=== PATIENT | male | born 1965 | race Caucasian/White ===

== ENCOUNTER 2018-11-01 22:40 | Outpatient (REF) | payer BC, SELFPAY ==
[2018-11-01 23:19] LABS: Hemoglobin A1C 5.3 % (4.5-6.2)
== END 2018-11-01 23:00 ==
LOC: NCHCN 22:40
PROVIDERS: PCP Family Medicine; Visit Provider Family Medicine
DX: R73.9 Hyperglycemia, unspecified (principal)
CPT/HCPCS: 83036

== ENCOUNTER 2019-02-23 16:28 | Outpatient (REF) | payer BC, SELFPAY ==
[2019-02-23 18:51] LABS: Abs Immature Grans 0.01 k/cumm (0.0-0.09); Absolute Basophil Count 0.01 k/cumm (0.0-0.2); Absolute Eosinophil Count 0.14 k/cumm (0.0-0.7); Absolute Lymphocyte Count 1.13 k/cumm (1.2-3.4); Absolute Monocyte Count 0.37 k/cumm (0.11-0.7); Absolute Neutrophil Count 3.79 k/cumm (1.2-6.7); Basophils % 0.2; Eosinophils % 2.6; HGB 13.5 g/dL (13.5-17.5); Immature Grans % 0.2; Lymphocytes % 20.7; Mean Corp. HGB Concentration 32.9 g/dL (32.0-36.0); Mean Corpuscular Hemoglobin 31.5 pg (27.0-33.0); Mean Corpuscular Volume 95.8 fL (80-95); Mean Platelet Volume 8.5 fL (8.0-11.0); Monocytes % 6.8; Neutrophils % 69.5; Platelet Count 192 x1000/uL (130-400); RBC 4.28 m/cumm (4.50-6.00); RBC Distribution Width 16.1 % (11.8-14.1); White Blood Cell Count 5.45 k/cumm (4.4-10.8)
== END 2019-02-23 16:48 ==
LOC: NCHCN 16:28
PROVIDERS: PCP Family Medicine; Visit Provider Family Medicine
DX: C91.40 Hairy cell leukemia not having achieved remission (principal)
CPT/HCPCS: 85025

== ENCOUNTER 2019-06-28 15:22 | Outpatient (REF) | payer BC, SELFPAY ==
[2019-06-28 21:02] LABS: Abs Immature Grans 0.02 k/cumm (0.0-0.09); Absolute Basophil Count 0.02 k/cumm (0.0-0.2); Absolute Eosinophil Count 0.17 k/cumm (0.0-0.7); Absolute Lymphocyte Count 1.29 k/cumm (1.2-3.4); Absolute Monocyte Count 0.66 k/cumm (0.11-0.7); Absolute Neutrophil Count 5.11 k/cumm (1.2-6.7); Basophils % 0.3; Eosinophils % 2.3; HCT 41.7 % (40.0-50.0); Immature Grans % 0.3 %; Lymphocytes % 17.7; Mean Corp. HGB Concentration 33.6 g/dL (32.0-36.0); Mean Corpuscular Hemoglobin 32.2 pg (27.0-33.0); Mean Corpuscular Volume 95.9 fL (80-95); Mean Platelet Volume 8.6 fL (8.0-11.0); Monocytes % 9.1; Neutrophils % 70.3; Platelet Count 193 x1000/uL (130-400); RBC 4.35 m/cumm (4.50-6.00); RBC Distribution Width 15.6 % (11.8-14.1); White Blood Cell Count 7.27 k/cumm (4.4-10.8)
[2019-06-28 21:09] LABS: ALT 59 U/L (16-63); AST 22 U/L (15-37); Alkaline Phosphatase 101 U/L (46-116); Anion Gap 5.8 mmol/L (3-11); BUN 20 mg/dL (7-18); Bilirubin, Total 0.6 mg/dL (0.2-1.0); CO2 30.2 mmol/L (21.0-32.0); CREATININE 1.12 mg/dL (0.70-1.30); Calcium 8.8 mg/dL (8.5-10.1); Chloride 102 mmol/L (98-107); Glucose 104 mg/dL (74-106); Potassium 3.8 mmol/L (3.5-5.1); Sodium 138 mmol/L (136-145)
== END 2019-06-28 15:42 ==
LOC: NCHCN 15:22
PROVIDERS: PCP Family Medicine; Visit Provider Family Medicine
DX: C91.40 Hairy cell leukemia not having achieved remission (principal); I10 Essential (primary) hypertension
CPT/HCPCS: 80053; 85025

== ENCOUNTER → 2020-04-28 14:44 | Outpatient (CLI) | payer BC, SELFPAY ==
--- NOTE | 2020-04-28 14:30 | DI.RAD_ITS ---
EXAM: XR HIP LT COMPLETE AP PELVIS CLINICAL HISTORY: painful L hip, limited motion. TECHNIQUE: 2D digital imaging was performed. COMPARISON: No exams were available for comparison FINDINGS: There are marked degenerative changes seen in the left hip characterized by joint space narrowing, aparicio bchondral sclerosis and cysts, and periarticular spurring. Moderate degenerative changes are seen in the right hip. No acute fracture or dislocation. There is a mixed lytic and sclerotic lesion in th e left pubic bone. IMPRESSION: 1. Marked degenerative changes of the left hip. 2. Mixed lytic and sclerotic focus in the left pubic bone. Differential considerations include prior trauma, infection or neoplasm. A CT scan or MRI of the pelvis is recommended for further evaluation . DATA REPOSITORY: RADIATION DOSE DELIVERED:
== END ==
PROVIDERS: PCP Family Medicine; Referring Provider Family Medicine; Visit Provider Student in an Organized Health Care Education/Training Program
DX: M16.12 Unilateral primary osteoarthritis, left hip (principal)
CPT/HCPCS: 73502

== ENCOUNTER 2020-05-30 02:01 | Outpatient (CLI) | payer BC, SELFPAY ==
[2020-05-31 13:58] LABS: COVID-19 RT-PCR UVMMC Result Negative (Negative)
== END 2020-05-30 02:02 | disposition home or self-care (01) ==
LOC: LBO 02:01
PROVIDERS: PCP Family Medicine; Visit Provider Student in an Organized Health Care Education/Training Program
DX: Z20.822 Contact with and (suspected) exposure to COVID-19 (principal); Z01.818 Encounter for other preprocedural examination
CPT/HCPCS: U0003

== ENCOUNTER 2020-05-30 02:34 | Outpatient (CLI) | payer BC, SELFPAY ==
[2020-05-30 10:26] LABS: HCT 43.6 % (40.0-50.0); HGB 14.2 g/dL (13.5-17.5); MCH 31.2 pg (27.0-33.0); MCHC 32.6 % (32.0-36.0); MCV 95.8 fL (80-95); MPV 8.6 fL (8.0-11.0); Platelet Count 170 10^3/uL (130-400); RBC 4.55 10^6/uL (4.36-5.78); RDW-SD 53.9 fL; WBC 6.83 10^3/uL (4.4-10.8)
[2020-05-30 11:11] LABS: Anion Gap 10.8 mmol/L (3-11); BUN 20 mg/dL (7-18); CO2 24.2 mmol/L (21.0-32.0); CREATININE 1.2 mg/dL (0.70-1.30); Calcium 8.8 mg/dL (8.5-10.1); Chloride 104 mmol/L (98-107); Glucose 132 mg/dL (74-106); Potassium 4.4 mmol/L (3.5-5.1); Sodium 139 mmol/L (136-145)
== END 2020-05-30 02:35 | disposition home or self-care (01) ==
LOC: LBO 02:34
PROVIDERS: PCP Family Medicine; Visit Provider Student in an Organized Health Care Education/Training Program
DX: M25.552 Pain in left hip (principal); M16.12 Unilateral primary osteoarthritis, left hip; Z01.818 Encounter for other preprocedural examination; Z01.812 Encounter for preprocedural laboratory examination
CPT/HCPCS: 36415; 80048; 85027; 86850; 86900; 86901

== ENCOUNTER 2020-06-03 06:08 | Day surgery (SDC) | payer BC, SELFPAY ==
[2020-06-03] VITALS (10 sets, daily range): BP systolic 88–110; BP diastolic 50–77; PULSE 55–93; RESP 12–18; TEMP 36.1–36.5; O2SAT 97–100
[2020-06-03] MEDS: Celecoxib 200 MG CAP 400 MG PO (06:51)
[2020-06-03] MEDS: Acetaminophen 500 MG TAB 1000 MG PO ×2 (06:52→15:09)
[2020-06-03] MEDS: Lactated Ringers 1,000 ML 80 ML IV ×2 (07:00→10:22)
--- NOTE | 2020-06-03 07:29 | PDOC.DSDIS_ITS ---
Discharge Plan Disposition Patient Disposition: HOME Condition: Good Discharge Details Reason For Visit: Left HIp DJD Attending Provider: Moise Wagner Primary Care Provider: Sarah Dale Home Meds and New Rx's Prescriptions: New celecoxib 200 mg capsule 200 mg PO BID PRN (Reason: pain) Qty: 60 RF: 1 aspirin 81 mg tablet,delayed release (DR/EC) 81 mg PO BID Qty: 60 RF: 0 acetaminophen 500 mg tablet 1,000 mg PO Q8H PRN (Reason: pain) Qty: 90 RF: 3 pantoprazole 40 mg tablet,delayed release (DR/EC) 40 mg PO DAILY Qty: 30 RF: 0 docusate sodium [Colace] 100 mg capsule 100 mg PO BID PRNQty: 10 RF: 0 oxycodone 5 mg tablet 5 mg PO Q4H Qty: 15 RF: 0 Continued amlodipine 5 mg tablet 5 mg PO BID RF: 0 losartan-hydrochlorothiazide 100-12.5 mg tablet 1 tab PO DAILY RF: 0 dextroamphetamine-amphetamine [Adderall] 10 mg tablet 10 mg PO BID RF: 0 saw palmetto 450 mg capsule 900 mg PO ONCE RF: 0 Discontinued ibuprofen [Advil] 200 mg tablet 200 mg PO Q6H PRNRF: 0 ibuprofen-acetaminophen 125-250 mg tablet 2 tab PO DAILY PRNRF: 0 ibuprofen [Advil Liqui-Gel] 200 MG capsule 600 mg PO PRN PRNRF: 0 Discharge Instructions Additional Instructions: Total Hip Discharge Instructions Activity: The most important activity is to walk. You should try to take short walks a few times a day. You have no restrictions on movement or positioning, but do not try to force what you do. You will find some stiffness and weakness with hip flexion (lifting your knee). Do not try to strengthen this too early, continue to practice walking and stairs and this will come. - Outpatient physical therapy can be helpful to help return you to a normal gait and improve your flexibility and strength. This can start around 2 weeks. For some patients, it?s not necessary. Usually this is determined at the time of discharge or at the first post-operative visit. - You should wear the FRANCISCO J hose on both legs for 2 weeks. Dressing: Keep the surgical dressing in place for at least one week. After the first week it may be removed and replace with light gauze and tape or nothing. It may get wet after 3 days but avoid soaking the dressing. If it gets wet, just lightly pat dry. It is important to always keep some gauze between skin folds, especially when you are sitting. Spend some time with the wound exposed when you are lying flat as the incision does wrinkle onto itself. Medications: - You should take Tylenol and an anti-inflammatory Celebrex as your primary pain control medications. If the Celebrex is too expensive or not covered, please call the office for another alternative (Advil/Ibuprofen or Naproxen/Aleve). - You have been prescribed a stronger pain medication Oxycodone for breakthrough pain, take as needed as prescribed. - You have also been prescribed a stomach acid reduction agent Pantoprozole to help reduce stomach acid and reflux. - You will be taking Aspirin 81mg twice a day for DVT prevention unless instructed otherwise. - If you have constipation you should take Colace or Miralax (both [id number]). It takes most people 3-4 days to have a bowel movement. Follow-up: 2 weeks If you have any acute concerns or questions, please do not hesitate to contact the office at [phone]. You may contact Dr. Wagner with any questions after hours through the hospital at [phone] or on his cell phone at [phone]. Referrals: Moise Wagner MD [ [facility] STAFF PHYSICIAN] - Equipment/Supplies: Walker Activity:: Activity as Tolerated Shower/Bathe:: 72 hours Diet:: As Tolerated Discharge Orders Discharge Orders: Discharge Order (Routine); Ordered 06/03/20 Ordered By: Moise Wagner DS: Diagnosis Discharge Diagnosis (1) Arthritis of left hip: Status: Acute
[2020-06-03] MEDS: ceFAZolin 3,000 MG in Normal Saline 100 ML 200 MG IVPB (07:30)
[2020-06-03] MEDS: Ketorolac 30 MG/ML VIAL (08:58)
[2020-06-03] MEDS: Bupivacaine 0.25% Pres-Free 30 ML VIAL (08:58)
--- NOTE | 2020-06-03 09:10 | DI.RAD_ITS ---
EXAM: XR HIP LT IN OR CLINICAL HISTORY: Arthritis of left hip. TECHNIQUE: 2D and realtime digital imaging was performed. COMPARISON: No exams were available for comparison FINDINGS: Fluoroscopy was provided in the OR for Dr. Wagner. Hard copy images show placement of a left hip p rosthesis. The alignment appears satisfactory. Please see procedure note for details. RADIATION DOSE DELIVERED: 41 second fluoro time. 8.7 mGy dose received.
[2020-06-03] MEDS: fentaNYL 100 MCG/2 ML VIAL IVP (09:40)
--- NOTE | 2020-06-03 10:22 | W.PM.OP ---
Date of service: 06/03/20 Time of Service: 09:22 Operative Note Operative Note DATE OF PROCEDURE: 06/03/20 PRE-OP DIAGNOSIS: Left Hip Osteoarthritis POST-OP DIAGNOSIS: same PROCEDURE: Left Anterior Total Hip Arthroplasty SURGEON: Moise Wagner SERVICE CAPTAIN: Eduardo Arriaga ANESTHESIA TYPE: Spinal Refer to Anesthesia Record ESTIMATED BLOOD LOSS: 350 PATHOLOGY: none sent COMPLICATIONS: None Patient was transported to: PACU Patient's condition: stable Implants: 1. Depuy Dighton Acetabular Component, 56mm 2. Depuy Acetabular Liner, [id number] 3. Depuy Corail High Offset Collared Femoral Stem, Size 14 4. Depuy Altrx Ceramic Femoral Head, Size 36+1.5mm Indications: I have seen Joao in clinic for symptoms of hip arthritis, confirmed with radiographic findings. He has exhausted nonoperative methods and was having significant limitations in daily function and desired better function and less pain. I discussed the technical details of a hip replacement. I explained the risks of the procedure to include, but not limited to, bleeding, infection, pain, stiffness, fracture, damage to nerves and vessels, damage to muscles and tendons, loosening, instability, leg length inequality, need for repeat procedure, blood clot and cardiopulmonary demise. Despite these risks, Joao elected to proceed. Findings: There was significant signs of arthritis throughout the hip. Large osteophytes were present over the femoral head and neck and inferior acetabulum. Procedure Description: Joao was greeted in the preoperative holding area where the correct side was identified and marked. The consent was reviewed with the patient and signed. The history and physical was updated. All questions were answered. He was taken back to the operating room. A spinal anesthestic was then administered. The feet were wrapped with cast padding and Coban and then placed into the boot liners and then into the boots. Care was taken to protect the skin and make sure the heels were fully down and the boots were stable. The patient was then positioned onto the HANA table. Both legs were held in a neutral position. SCDs were applied. The patient was then slid down onto a peroneal post. Prophylactic antibiotics in the form of Cefazolin were administered. 1g of Tranxemic Acid was given intravenously within 30 minutes of incision. The left leg was then prepped with Chloraprep and draped in a standard fashion. A second prep with Chloraprep was performed prior to placement of a shower-curtain type drape with Iodine impregnated skin protection. A timeout to confirm correct identity, side and site, procedure, allergies, anesthesia, and medical concerns was performed. An obliquely oriented incision was made starting lateral to the ASIS and running distal over the Tensor Fascia Mary (TFL) muscle belly toward the fibular head, approximately 10cm. The skin and soft tissue was dissected sharply, through Wlily?s fascia, and to the fascia of the TFL. With the fascia and superior border of the IT band identified, the fascia was incised with a new knife just above any perforators from the IT band. The TFL muscle belly was bluntly dissected away from the fascia and moved laterally. The fat between TFL and rectus was identified to ensure the dissection was not within the TFL. Blunt dissection created space between abductors and the capsule and retractor was placed over the lateral femoral neck. The fibers of the rectus femoris tendon were identified and these were freed from the anterior capsule. A second cobra retractor was placed around the medial femoral neck. The TFL was further retracted laterally to show the deep fascia. Careful dissection through this layer identified three main crossing vessels of the lateral femoral circumflex. These were cauterized in multiple locations and then cut without any noticeable bleeding. The TFL was further released bluntly from the deep fascia to expose anterior hip capsule and fat The Daren orthopaedic retractor was then placed beneath the TFL and against sartorius and medial soft tissues to protect and retract the soft tissues. A T-capsulotomy was then performed starting at the superior lateral acetabulum and moving distally to the intertrochanteric ridge. These capsular flaps were tagged with a No. 1 Ethibond and elevated from within. The capsular flaps were released to the shoulder of the lateral neck and to the lesser trochanter to give excellent visualization of the proximal femur. A neck osteotomy was performed using an oscillating saw based on preoperative templates. This cut started in the shoulder and of the lateral neck and exited medially. The saw was at all times directed medially to avoid injury to the greater trochanter. Gross traction was applied to the leg and the osteotomy opened. The femoral head was removed with a corkscrew, making sure to protect the TFL on its exit. Traction was released after head removal. This was measured on the back table to determine the starting reamer size. Portions of the rectus obscuring visualization were minimally elevated off the superior acetabulum. An anterior retractor was placed over the anterior wall between capsule and labrum and attached to the Gripper retraction system. The femur was rotated to 90 degrees and medial capsule was fully released until the lesser trochanter was palpable and visible; the femur was returned to 30 degrees. A posterior retractor was placed similarly between capsule and labrum. This provided excellent visualization. The contents of the cotyloid fossa were removed with electrocautery and the labrum was removed with a knife. There was a notable floor osteophyte. There was significant chondromalacia of the superior acetabulum. Acetabular reaming began with a 53mm reamer. This first reaming was directed anterior to posterior and medial to get down to the true floor. This was inspected and reamed until the true floor was reached. The anterior retractor was then released and entry and exit was provided by traction on the capsular flaps. I then reamed sequentially up to a 56mm reamer where good fit was obtained. The larger reamers were oriented based on anatomical reference of the anterior and lateral ernst to ensure proper abduction and anteversion. Positioning and size was confirmed with the fluoroscopy. A 56mm Depuy Dighton acetabular component was selected. The acetabulum was reamed around the periphery with the selected acetabular size to prevent a rim fit. The deep tissues were irrigated. The acetabular component was then impacted in a position of about 40-45 degrees of abduction and 15-20 degrees of anteversion, using the patient?s anatomy as the ultimate landmark. Fluoroscopy was used to confirm this. There was excellent milking machine mechanic of the acetabular component and the inserting handle was removed. The acetabular liner, Depuy [id number] polyethylene liner, was inserted and lined up with the tines of the acetabular component. There was no soft tissue interposition. The liner was then impacted into position and confirmed to be well-seated. A portion of the rodriguez-articular cocktail was then injected around the acetabulum into the capsule and periosteum. This cocktail consisted of 50cc of 0.25% Bupivicaine and 20cc of Exparel and 30mg of Ketorolac. There was a large inferior acetabular osteophyte. This was removed with a curved osteotome following the posterior and inferior border of the acetabular component. The leg was rotated to 120 degrees. Any remaining medial capsule was released until the lesser trochanter was easily palpable. A retractor was placed medially. The lateral capsule was further released into the shoulder to allow access to the greater trochanter. A Moura retractor was placed over the greater trochanter which allowed the trochanter to flip in front of the capsule for excellent exposure. The leg was brought down into maximal extension and 20 degrees of adduction while ensuring there was no impingement on the acetabulum. Any remnant capsule within the trochanter was released. Piriformis and obturator externis were identified and protected. There was excellent access to the proximal femur. The lateral neck remnant was removed with a rongeur. A blunt canal probe was used to identify the canal and trajectory for later broaching. A box osteotome initiated the broach course. A small curved rasp and a curved curette were used to work laterally. Broaching then began with a size 8 Corail broach. This was inserted manually around the trochanter and into the canal before mallet blows. The broach was seated to a few millimeters below the cut level based on the neck cut and the preoperative template. Sequential broaching was continued with the [employer] pneumatic broaching device until a tight fit was obtained with good rotational control of the femur. A trial standard neck was inserted along with a +1.5 trial head. The leg was brought out of extension and adduction and then reduced with traction and internal rotation. The leg was stable anteriorly in a position of 30 degrees of extension and 90 degrees of external rotation. Fluoroscopy was used to ensure there was no fracture and the stem was seated well. Leg lengths were checked with an AP pelvis and pelvic reference points. GeoOP navigation system was used to confirm appropriate positioning and leg length and offset. The leg length appeared corrected but the offset was undercorrected which would be solved by going to a high offset stem. Once content with the desired offset and leg lengths, the leg was brought back into extension, external rotation and adduction. The periosteum and surrounding tissue was injected with remaining portion of the rodriguez-articular cocktail. The proximal femur was irrigated as well as the deep tissues. The Depuy Corail high offset collared stem, size 14, was then manually inserted into the proximal femur making sure to control rotation. It was then malleted into position with light blows, giving breaks to allow bone expansion and decrease risk of fracture. The selected Depuy Altrx Ceramic Head, size 36+1.5mm, was then placed onto the clean and dry trunnion and secured with impaction onto the tapered fit. The leg was brought back out of extension and adduction and reduced with traction and internal rotation. Stability was confirmed with no shuck at 90 degrees of external rotation and 30 degrees of extension. No impingement through range of motion arc. Final x-ray images were obtained with fluoroscopy to confirm adequate positioning and no intraoperative fracture. The deep tissues were thoroughly irrigated with Irrisept chlorhexadine solution. The second dose of TXA 1g was administered intravenously.The capsule was then reapproximated with the previously placed Ethibond sutures. The TFL fascia was finally closed with a No. 2 Stratafix, barbed suture. Deep tissues were then reapproximated with 0 Vicryl and a running 2-0 Vicryl. The skin was closed with a running 4-0 Monocryl in a subcuticular fashion. This was reinforced with skin glue. A Mepilex silver dressing was applied. At the end of the case, all counts were correct. Joao was transferred to the hospital bed without difficulty and suffering no apparent complication. Joao has a good prognosis. Physical therapy will start today and without restrictions, weight-bearing as tolerated. Aspirin 81mg BID will be used for DVT prophylaxis.
[2020-06-03] MEDS: oxyCODONE 5 MG TAB PO (11:41)
--- NOTE | 2020-06-03 12:46 | IN_ITS ---
Date of service: 06/03/20 Time of Service: 12:46 PT Notes Visit Reasons: Left HIp DJD Physical Therapy Day Surgery Initial Evaluation Date: 06/03/2020 Referring Doctor: Moise Wagner MD PT Orders: PT CONSULT: S/P ortho surgery. S/P L STEPHANIE Precautions: Fall. Standard. WBAT on left LE. Patient Profile/Admitting Diagnosis: Keith is a 55-year-old male with primary unilateral osteoarthritis of the left hip and is status post total hip arthroplasty on postoperative day 0. 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 Has a flight of steps to the second floor house where his shower room is, rail on the R going up. Has another flight of steps down to the basement where he frequently goes to to monitor his boiler, rail on the R going up. Independent with all aspects of ADLs prior to surgery. Daughter who lives a mile away can help as needed. Equipment Owned/DME: FWW, SPC Subjective: Agreeable to PT consult. Denies pain in the left hip, chest pain, headache, and dizziness throughout session. Objective: General Observation: Bilateral TEDS. IV access in R UE. Mepilex Ag over surgical incision. Mental Status: Alert and oriented x4 Pain: None reported Vital Signs: Within normal limits as closely monitored by Nurse La and Nurse Dunlap ROM: Right Upper Extremity: Shoulder Flexion WFL. Shoulder abduction WFL. Elbow flexion WFL. Wrist flexion WFL. Opening and closing of hand WFL. Left Upper Extremity: Shoulder Flexion WFL. Shoulder abduction WFL. Elbow flexion WFL. Wrist flexion WFL. Opening and closing of hand WFL. Right Lower Extremity: Hip flexion WFL. Hip abduction WFL. Knee flexion WFL. Ankle dorsiflexion WFL. Ankle plantarflexion WFL. Left Lower Extremity: Hip flexion jessica allows up to 100 degrees, limited by pain at end of range. Hip abduction WFL. Knee flexion WFL. Ankle dorsiflexion WFL. Ankle plantarflexion WFL. Strength: Right Upper Extremity: Shoulder flexors 5/5. Shoulder abductors 5/5. Elbow flexors 5/5. Elbow extensors 5/5. Senior Piping Designer strong. Left Upper Extremity: Shoulder flexors 5/5. Shoulder abductors 5/5. Elbow flexors 5/5. Elbow extensors 5/5. Senior Piping Designer strong. Right Lower Extremity: Hip flexors 3-/5. Hip abductors 4/5. Knee flexors 5/5. Knee extensors 5/5. Ankle dorsiflexors 5/5. Ankle plantarflexors 5/5. Left Lower Extremity:Hip flexors 5/5. Hip abductors 5/5. Knee flexors 5/5. Knee extensors 5/5. Ankle dorsiflexors 5/5. Ankle plantarflexors 5/5. Sensation: Intact as to pain and pressure on bilateral lower extremities. Bed Mobility/Transfers: Rolling independent Supine to sit independent Sit to supine independent Sit to stand independent Stand to sit independent Bed to chair supervision Chair to bed supervision Gait: Guided patient through level surface ambulation of 200 feet using the front wheeled walker with standby assist with WBAT on the L LE. Also tolerated another 100 feet using the bilateral axillary crutches and another 100 feet using the single point cane. THERA EX: Covered education and training as well as demonstration standing level and seated level exercises after ambulation activity. Stairs: Patient required minimal verbal cueing to negotiate 12 steps while holding onto a rail on the right and using a crutch on the left for support requiring just standby assist of PT and standby assist of nurses Bryan and Bessie. No increase in pain in the L hip reported. Balance: Static Sitting: Normal Dynamic Sitting: Normal Static Standing: Fair Dynamic Standing: Fair Special Tests: Mobility Limitations Standardized Measure [employer] AM-PAC 6 clicks Basic Mobility Inpatient Short Form: Raw Score: 24 CMS Score: 0% deficit Informed Consent/Education: Patient instructed in purpose of PT consult. Packet containing L STEPHANIE exercise protocol has been given to patient. Education and training on initial set of exercises that can be done at home have been completed with patient. Assessment: Keith demonstrates the need for the use of a FWW or bilateral axillary crutches for level surface ambulation as well as the need to hold onto arail and a crutch or a cane for stair negotiation in order to maximize independence at home. Patient presents with clinical signs and symptoms consistent with current/admitting diagnoses that have resulted to mobility limitations, gait instability, generalized weakness, and impairment of motor control as demonstrated by the following impairment level findings: 1. Decreased strength to left hip flexors 2. Impaired standing balance 3. Impaired activity tolerance 4. Limitation of joint range of motion in L hip Impairments are contributing to the following functional limitations: 1. Inability to safely ambulate without assistive device and physical assistance Patient is assessed as a 13462 moderate complexity based on the following: History: 55-year-old male with impairment level findings, functional limitations, and past medical history as indicated above Examination: Demonstrable impairment in strength, balance, and mobility level with underlying impairments and functional limitations as documented above Presentation:Evolving Decision Makin moderate complexity Goals: N/A. PT evaluation and 1 treatment session only for functional mobility training using recommended AD and for HEP instruction. Plan of Care/Treatment Plan: N/A. PT evaluation and 1 treatment session only for functional mobility training using recommended AD and for HEP instruction. DISCHARGE RECOMMENDATIONS: Home when medically cleared by orthopedic surgeon today. Will benefit from the use of bilateral axillary crutches to manage steps at home. TREATMENT CODE/TIME: 16836 x 30 minutes, 92150 x 35 minutes, 53811 x 19 minutes beginning at 12:46 PM. Thank you for the opportunity to participate in the care of this patient. Nikky Sim PT, DPT, CLT [facility] [place], [place]
== END 2020-06-03 15:36 | disposition home or self-care (01) ==
PROVIDERS: PCP Family Medicine; Visit Provider Student in an Organized Health Care Education/Training Program
PROC: (CPT 27130; principal; 2020-06-03 07:30)
DX: M16.12 Unilateral primary osteoarthritis, left hip (principal); M25.552 Pain in left hip; Z96.652 Presence of left artificial knee joint; F17.210 Nicotine dependence, cigarettes, uncomplicated
CPT/HCPCS: 27130; 20985; C1776; 97110; 97162; 97530; 73501; J0690; J1885; J2001; J2250; J2370; J2405; J3010

== ENCOUNTER 2020-06-16 10:57 | Outpatient (CLI) | payer BC, SELFPAY ==
--- NOTE | 2020-06-16 10:00 | DI.RAD_ITS ---
EXAM: XR HIP LT COMPLETE AP PELVIS INDICATION: 1st post op L STEPHANIE. COMPARISON: CR XR HIP LT COMPLETE AP PELVIS from 04/28/2020 XR HIP LT IN OR from 06/03/2020 TECHNIQUE: 2D digital imaging was performed. FINDINGS: No change in a appearance left hip prosthesis. No abnormal bony lucencies. Stable degenerative bernard nges of the right hip. DATA REPOSITORY: RADIATION DOSE DELIVERED:
== END 2020-06-16 10:58 | disposition home or self-care (01) ==
LOC: DIORS 10:58
PROVIDERS: PCP Family Medicine; Referring Provider Family Medicine; Visit Provider Physician Assistant
DX: Z96.642 Presence of left artificial hip joint (principal); M16.11 Unilateral primary osteoarthritis, right hip
CPT/HCPCS: 73502

== ENCOUNTER 2020-09-17 12:52 | Outpatient (REF) | payer BC, SELFPAY ==
[2020-09-17 13:35] LABS: HCT 44.5 % (40.0-50.0); HGB 14.5 g/dL (13.5-17.5); MCH 30.7 pg (27.0-33.0); MCHC 32.6 % (32.0-36.0); MCV 94.3 fL (80-95); MPV 8.9 fL (8.0-11.0); Platelet Count 178 10^3/uL (130-400); RBC 4.72 10^6/uL (4.36-5.78); RDW 15.2 % (11.8-14.1); RDW-SD 52.9 fL; WBC 6.43 10^3/uL (4.4-10.8)
[2020-09-17 14:00] LABS: ALT 45 U/L (16-63); AST 21 U/L (15-37); Albumin 4.3 g/dL (3.4-5.0); Alkaline Phosphatase 111 U/L (46-116); Anion Gap 11.2 mmol/L (3-11); BUN 20 mg/dL (7-18); Bilirubin, Total 0.6 mg/dL (0.2-1.0); CO2 24.8 mmol/L (21.0-32.0); Calcium 8.8 mg/dL (8.5-10.1); Calculated LDL 127 mg/dL (<100); Chloride 103 mmol/L (98-107); Cholesterol 215 mg/dL (<200); Glucose 109 mg/dL (74-106); HDL Cholesterol 35 mg/dL (40-60); Sodium 139 mmol/L (136-145); Total Protein 7.2 g/dL (6.4-8.2); Triglyceride 269 mg/dL (<150)
== END 2020-09-17 12:53 | disposition home or self-care (01) ==
LOC: NCHCN 12:52
PROVIDERS: PCP Family Medicine; Visit Provider Family Medicine
DX: I10 Essential (primary) hypertension (principal); E78.5 Hyperlipidemia, unspecified; C91.40 Hairy cell leukemia not having achieved remission
CPT/HCPCS: 80053; 80061; 85027

== ENCOUNTER 2020-10-09 03:23 | Outpatient (CLI) | payer BC, SELFPAY ==
--- NOTE | 2020-10-09 07:39 | DI.US_ITS ---
APPROVED REPORT EXAM: Comprehensive 2D, Doppler, and color-flow Echocardiogram Patient Location: Out-Patient Mechanical Artist: Eladia Wynne RDCS (AE) Indications: Syncope Other Information Study Quality: Adequate Conclusion Left Ventricle : The left ventricle is normal size. The left ventricular ejection fraction is within the normal range. There is normal left ventricular wall thickness. There is normal LV segmental wall motion. The left ventricular diastolic function is normal. LVEF is 60%. Right Ventricle : The right ventricle is normal size. The right ventricular systolic function is norm al. The RVSP is 27.1 mmHg. Valves: There are no hemodynamically significant valvular lesions. Great Vessels : The aortic root is normal in size. The ascending aorta is mildly dilated. Aortic arch is not well visualized. IVC is normal in size and collapses >50% with inspiration. Please see remainder of study for further details. Wall motion Left Ventricle The left ventricle is normal size. The left ventricular ejection fraction is within the normal range. There is normal left ventricular wall thickness. There is normal LV segmental wall motion. The left ventricular diastolic function is normal. There is no ventricular septal defect visualized. LVEF is 6 0%. Right Ventricle The right ventricle is normal size. The right ventricular systolic function is normal. The RVSP is 27 .1 mmHg. Atria The left atrium size is normal. The right atrium size is normal. The interatrial septum is intact wit h no evidence for an atrial septal defect. Aortic Valve The aortic valve is normal in structure. Aortic valve is trileaflet. There is no aortic valvular sten osis. No aortic regurgitation is present. Mitral Valve The mitral valve is normal in structure. No evidence of mitral valve stenosis. Trace mitral regurgita tion. Tricuspid Valve The tricuspid valve is normal in structure. There is no tricuspid valve stenosis. Trace tricuspid reg urgitation. Pulmonic Valve The pulmonary valve is normal in structure. There is no pulmonic valvular stenosis. Trace to mild pul fermin regurgitation. Great Vessels The aortic root is normal in size. The ascending aorta is mildly dilated. Aortic arch is not well vis ualized. IVC is normal in size and collapses >50% with inspiration. Pericardium There is no pericardial effusion. 2D Dimensions IVSD d PLAX 0.99 cm M: 0.6-1.2 LV Vol A2C d MOD 111.9 mL LVPW d PLAX 0.98 cm M: 0.6 - 1.2 LV Vol A4C d MOD 126.4 mL LVID d PLAX 4.48 cm M: 4.2 - 5.8 LA vol/ BSA A2C s A-L 22.4 mL/m2 LVDs 3.00 cm M: 2.5 - 4.0 LA vol/ BSA A4C s A-L 15.0 mL/m2 Ao Root d 3.24 cm M: 3.1 - 3.7 LA Vol/ BSA Biplane s A-L 18.7 mL/m2 RA Area A4C 17.55 cm2 LA Area A4C s MOD 15.14 cm2 RA Vol/ BSA A4C s A-L 20.8 mL/m2 LA Area A2C s MOD 18.98 cm2 Ao Asc Diam d 3.80 cm M: 2.6 - 3.4 LV EF A4C MOD 59.4 % LV EF Teichholz 60.2 % LV EF A2C MOD 63.2 % LVEF (Kelley's) 59.03 % M: 52 - 72 LV EF Biplane MOD 59.0 % LV Volume 84.90 mL M: 62 - 150 SV 70.06 mL LV Volume Index 36.59 mL/m2 M: 34 - 74 SV Index 30.17 mL/m2 LV Vol Biplane MOD 118.7 mL FS 31.95 % M-Mode TAPSE 2.30 cm (M/F) >1.7 LV Diastology MV E' medial 0.089 (>0.07 m/s) E/A Ratio 1.3 LV E/e MED 8.40 (<14) MV E Vmax 0.75 (0.4-1.3 m/s) MV E' lateral 0.123 (>0.1 m/s) MV A Vmax 0.60 (0.4-1.3 m/s) LV E/e LAT 6.05 (<14) MV E/A Ratio 1.16 MV E/E' medial 8.42 MV E/E' lateral 6.09 Aortic Valve LVOT Area 3.75 cm2 AoV Area Vmax 3.35 cm2 LVOT Vmax 1.11 m/s AoV Area/ BSA (Vmax) 1.44 cm2/m2 LVOT Mean [facility]. 0.67 m/s TATIANA Mean [facility]. 2.82 cm2 LVOT Peak Grad 5.0 mmHg TATIANA Mean [facility]. Index 1.22 cm2/m2 LVOT Mean Grad 2.2 mmHg LVOT VTI 0.225 m LVOT Diam s 2.15 cm AoV Vmax 1.25 m/s Velocity Ratio 0.88 AoV Mean [facility]. 0.89 m/s AoV Peak Grad 6.2 mmHg LVOT SV 84.48 mL AoV Mean Grad 3.7 mmHg AoV VTI 0.231 m AoV Area VTI 3.66 cm2 AoV Area/ BSA (VTI) 1.58 cm/m2 Mitral Valve MV DT 224 (160-240 msec) MR Vmax 4.81 m/s MV PHT 65 msec MR VTI 1.240 m MV Area PHT 3.39 cm2 MR Peak Grad 92.4 mmHg MV VTI 0.292 m MR Mean Grad 55.5 mmHg MV VTI Annulus 0.294 m MV Area VTI 2.91 (4.0-6.0 cm2) Pulmonary Valve PV Vmax 1.06 (0.5-1.5 m/s) RVOT Peak Gr. 2.64 mmHg PV Peak Grad 4.5 mmHg RVOT Mean Gr. 1.10 mmHg PV Mean Grad 2.1 mmHg RVOT VTI 0.159 m PV VTI 0.203 m RVOT Vmax 0.81 m/s Tricuspid Valve TR Peak Grad 24.1 mmHg TR Vmax 2.46 m/s RA Pressure 3.00 mmHg RVSP (TR) 27.1 mmHg
== END 2020-10-09 03:43 ==
PROVIDERS: PCP Family Medicine; Visit Provider Family Medicine
DX: R55 Syncope and collapse (principal); I77.810 Thoracic aortic ectasia
CPT/HCPCS: 93306

== ENCOUNTER 2020-10-09 04:34 | Outpatient (CLI) | payer BC, SELFPAY ==
--- NOTE | 2020-11-10 08:50 | W.CARDEVENT ---
Date of service: 11/10/20 Time of Service: 08:50 Cardiac Event Recorder Referring Provider:: Donis Indications:: Roberta Cardiac Event Note: This is a 30-day event recorder order for indication of syncope. The patient was in normal sinus rhythm for the majority the recording with an average heart rate of 70 bpm. There were 0 critical and 0 stable events. There were no episodes of atrial fibrillation, no pauses greater than 3 seconds and no evidence of high degree heart block. There was 1 patient recorded event associate with sinus rhythm.
== END 2020-10-09 04:35 | disposition home or self-care (01) ==
LOC: RT 04:34
PROVIDERS: PCP Family Medicine; Visit Provider Family Medicine
DX: R55 Syncope and collapse (principal)
CPT/HCPCS: 93270

== ENCOUNTER 2020-11-24 08:20 | Day surgery (SDC) | payer BC, SELFPAY ==
--- NOTE | 2020-11-24 07:00 | W.COLOREPORT ---
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 Pt has had had a colon cancer screening before. His last colonoscopy was in [address] Nuno. Two ascending colon polyps, 0.2 and 0.4 mm 2. One transverse colon polyp, sessile, 3 mm in size 3. Two pedunculated rectal polyps; one was 5 mm and one was 6 mm-sessile serrated Denies problems with constipation, diarrhea. No pain or difficulty with bowel movements. He does have a hemorrhoid- bleeds. Denies rectal bleeding. There is no family history of any colon cancer. Pt has not had any weight loss. Their appetite is good. No heart, lung, or kidney problems. No heartburn or indigestion. No prior colo-rectal surgery. No prior prostate. No problems with anesthesia in the past. Uncle may have had colon cancer. Prep: Miralax/Dulcolax Procedure Start Time: 10:07 Procedure End Time: 10:41 Retraction Time: 20 minutes Findings: small polyps mild sigmoid diverticulosis Grade 2 internal hemorrhoids Procedure Description: After informed consent was obtained the patient was taken to the procedure room and placed in a left decubitous position. Monitors were applied and a time out was done. The patients name, date of , procedure, allergies to medications and metal in their body was reviewed. The patient was then sedated. Once sedated and comfortable a rectal exam was done. External exam was normal. Internal exam revealed a normal sphincter tone and no palpable masses. The prostate felt smooth and mildly enlarged. The scope was then introduced and retro-flexed. Grade 2 internal hemorrhoids were noted. No polyps or masses were identified on retro-flexion. The scope was then advanced to the cecum without difficulty. The ileocecal vlave and appendiceal orifice were identified. The prep was adequate. The scope was then slowly retracted over 20 minutes back into the rectum. Polyps were removed with cold forceps in the descending colon and sigmoid colon. There was mild sigmoid diverticulosis noted. The scope was removed. Anoscopy was performed and 3 Grade 2 hemorrhoids were banded without difficulty. The patient was woken up and taken back to Same day surgery in stable condition. The patient tolerated the procedure well and there were no immediate complications. Follow up: The patient should follow up in 3-5 years unless they develop changes in bowel habits or other new gastrointestinal complaints.
--- NOTE | 2020-11-24 07:01 | W.PM.DSUDISC ---
Discharge Plan Disposition Patient Disposition: HOME Condition: Good Discharge Details Reason For Visit: Colonoscopy Attending Provider: Donna Nuno Primary Care Provider: Sarah Dale Home Meds and New Rx's Prescriptions: Continued celecoxib 200 mg capsule 200 mg PO BID PRN (Reason: pain) RF: 0 amlodipine 5 mg tablet 5 mg PO BID RF: 0 dextroamphetamine-amphetamine [Adderall] 10 mg tablet 10 mg PO BID RF: 0 epinephrine [EpiPen 2-Thee] 0.3 mg/0.3 mL auto-injector 0.3 mg IM ONCE RF: 0 tamsulosin 0.4 mg capsule 0.4 mg PO DAILY RF: 0 Zyrtec 10 mg capsule 10 mg PO DAILY PRNRF: 0 losartan-hydrochlorothiazide 100-12.5 mg tablet 1 tab PO DAILY RF: 0 acetaminophen 500 mg tablet 1,000 mg PO Q8H PRN (Reason: pain) Qty: 90 RF: 3 Discontinued polyethylene glycol 3350 17 gram/dose powder 238 g PO ONCE Qty: 238 RF: 0 bisacodyl [Dulcolax (bisacodyl)] 5 mg tablet,delayed release (DR/EC) 5 mg PO ONCE Qty: 4 RF: 0 Discharge Instructions Instructions: Diverticulosis (DC), Colorectal Polyps (DC), Hemorrhoids (DC), Rubber Band Ligation (DC) Additional Instructions: Findings: polyps mild diverticulosis internal hemorrhoids Follow up: 3-5 years depending on final pathology Please call if you develop: fevers >101.5 Nausea or Vomiting Abdominal pain that is not transient Rectal bleeding that is more then a tbsp A hard abdomen and inability to pass gas DAY SURGERY UNIT POST ENDOSCOPY INSTRUCTIONS Instructions for everyone who is given Anesthesia: For your safety, please do the following for the next 24 Hours: a. Do not drive or operate dangerous equipment b. Do not drink alcohol beverages or use any recreational drugs for the first 24 hours or while taking pain medications. The medications in your body may have a reaction that can be dangerous. c. Do not make any important decisions or sign any important papers 1. Generally there are no restrictions on your activity after a day or so has gone by, but you may feel a bit fatigued for a few days. 2. After you arrive home you may have a light meal and return to a normal diet as you can tolerate it without feeling sick to your stomach. 3. After surgery, you may feel pain or discomfort. This should be only transient, but if it persists please contact your doctor. 4. If there are any questions regarding the findings of your procedure, please feel free to contact your doctor. 6. If you are unable to contact your doctor with a problem, contact the hospital at [phone]. 7. Continue all your regular medications unless directed otherwise. I understand the above instructions and have no questions. Signature of Patient or Responsible Adult Escort Date/Time Name of Responsible Adult Escort Signature of Nurse Date/Time Activity:: Activity as Tolerated Diet:: high fiber diet Discharge Orders Discharge Orders: Discharge Order (Routine); Ordered 11/24/20 Ordered By: Donna Nuno
[2020-11-24 09:11] VITALS: BP 113/81; PULSE 71; RESP 16; TEMP 36.1; O2SAT 98
[2020-11-24] MEDS: Lactated Ringers 1,000 ML 80 ML IV (09:27)
--- NOTE | 2020-11-24 09:45 | W.ANESPRE ---
General Info Date of Service Date Performed: 11/24/20 Height: 6 ft 1 in Weight: 113.5 kg Body Mass Index (BMI): 33.0 Surgical Procedure: Operation Date: 11/24/20 11:50 Proposed Procedures Side Surgeon p Colonoscopy Donna Nuno MD Meds Allergies and Home Medications Allergies Allergy/AdvReac Type Severity Reaction Status Date / Time sulfamethoxazole Allergy Intermediate Skin Rash Unverified 11/24/20 09:08 [From Bactrim] trimethoprim [From Bactrim] Allergy Intermediate Skin Rash Unverified 11/24/20 09:08 Home Medication Medication Instructions Recorded amlodipine 5 mg tablet 5 mg PO BID 04/28/20 dextroamphetamine-amphetamine 10 10 mg PO BID 04/28/20 mg tablet acetaminophen 1,000 mg PO Q8H PRN #90 tab 06/03/20 cetirizine 10 mg capsule 10 mg PO DAILY PRN 07/25/20 epinephrine 0.3 mg/0.3 mL 0.3 mg IM ONCE 07/25/20 injection, auto-injector losartan 100 1 tab PO DAILY 07/25/20 mg-hydrochlorothiazide 12.5 mg tablet tamsulosin 0.4 mg capsule 0.4 mg PO DAILY 07/25/20 bisacodyl 5 mg tablet,delayed 5 mg PO ONCE #4 tab 11/17/20 release celecoxib 200 mg capsule 200 mg PO BID PRN cap 11/17/20 polyethylene glycol 3350 17 238 g PO ONCE #238 g 11/17/20 gram/dose oral powder Current Visit Medications: Current Medications Generic Name Dose Route Start Last Admin Trade Name Freq PRN Reason Stop Dose Admin Hyoscyamine Sulfate 0.125 mg 11/24/20 07:01 Hyoscyamine 0.125 Mg Sl/Oral/Chew SL DIRECTED PRN Ringer's Solution 1,000 mls @ 80 mls/hr 11/24/20 23:59 11/24/20 09:27 IV 12/21/20 23:59 80 mls/hr INFUSION HO Administration IV Miscellaneous Supplies 1 each 11/24/20 23:59 Iv Access IV 12/21/20 23:59 DIRECTED HO Ondansetron HCl 4 mg 11/24/20 07:01 Ondansetron 4 Mg/2 Ml Vial IVP Q4H PRN PRN Nausea / Vomiting Sodium Chloride 0 ml 11/24/20 23:59 Normal Saline Flush 10 Ml Syr IV 12/21/20 23:59 PRN PRN Sodium Chloride 0 ml 11/24/20 23:59 Normal Saline 10 Ml Vial IJ 12/21/20 23:59 DIRECTED PRN Sterile Water 0 ml 11/24/20 23:59 Water,Injection,Sterile 10 Ml Vial IJ 12/21/20 23:59 DIRECTED PRN PFSH Active Problems Active Problems: Problem Status Onset Code Sessile colonic polyp 05/10/16 K63.5 Tubular adenoma of colon 05/10/16 D12.6 Depression F32.9 Anxiety F41.9 Obesity E66.9 ADD (attention deficit disorder) F98.8 Snoring R06.83 Hyperlipidemia E78.5 Hypertension I10 Hemorrhoids K64.9 BPH (benign prostatic hyperplasia) N40.0 Screening for colon cancer Z12.11 History of total left hip arthroplasty 06/03/20 Z96.642 Arthritis of left hip M16.12 Hairy cell leukemia, 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 Patrick 04/2019 History of anaphylactic shock due to insect sting (08/22/17) History of substance abuse Sessile colonic polyp (05/10/16) Tubular adenoma of colon (05/10/16) Surgical History Surgical History Cholecystectomy (05/26/16) laparoscopic Colonoscopy - MAC (05/10/16) History of cataract surgery Bilateral History of total left hip arthroplasty (06/03/20) Tobacco Smoking/Tobacco Use Status: Current every day Tobacco Type: cigarettes Smoking cigarettes per day: 5 Years smoked: 30 Alcohol Alcohol Intake: former Substance Use Substance use: Rarely Substance use type: marijuana Vital Signs and Lab Results Vital Signs Most Recent Vital Signs in EMR: Most Recent Vital Signs Temp Pulse Resp BP Pulse Ox 36.1 C L 71 16 113/81 98 11/24/20 09:11 11/24/20 09:11 11/24/20 09:11 11/24/20 09:11 11/24/20 09:11 Lab Results Blood Type / Crossmatch: No Data to Display Complete Blood Count: No Data to Display Complete Metabolic Panel: No Data to Display Liver Function Panel: No Data to Display Coagulation Panel: No Data to Display Cardiac Panel: No Data to Display Arterial Blood Gas: No Data to Display Venous Blood Gas: No Data to Display Pancreas Panel: No Data to Display Thyroid Panel: No Data to Display Infectious Disease: No Data to Display Blood Cultures: No Data to Display Toxicology Panel: No Data to Display Imaging and Studies Imaging and Studies Echocardiogram Summary: Conclusion Left Ventricle : The left ventricle is normal size. The left ventricular ejection fraction is within the normal range. There is normal left ventricular wall thickness. There is normal LV segmental wall motion. The left ventricular diastolic function is normal. LVEF is 60%. Right Ventricle : The right ventricle is normal size. The right ventricular systolic function is normal. The RVSP is 27.1 mmHg. Valves: There are no hemodynamically significant valvular lesions. Great Vessels : The aortic root is normal in size. The ascending aorta is mildly dilated. Aortic arch is not well visualized. IVC is normal in size and collapses >50% with inspiration. Please see remainder of study for further details. 10/09/20 Anesthesia Assessment and Plan Anesthesia History Personal History: No History of Anesthesia Complications Family History: No Family History of Anesthesia Complications Exercise Tolerance Exercise Tolerance: Metabolic Equivalents>4 Pertinent Negatives Pertinent Negatives: No Symptoms of GERD, No Major Cardiovascular Symptoms or Complaints and No Major Pulmonary Symptoms or Complaints Cardiac & Pulmonary Exam Cardiac Exam: Normal S1/S2 Heart Sounds Pulmonary Exam: Clear Bilateral Breath Sounds Airway Exam Known Difficult Airway: No Mallampati Class: 1 Mouth Opening: Normal (> 3cm) Thyromental Distance: Greater than 3 cm Neck Range of Motion: Full ROM Neck Circumference: Normal Teeth Condition: Normal Dentition ASA Classification ASA Score: ASA 2 Emergency Case?: No NPO Status NPO Status: NPO Clears >2 hours, Solids >8 hours Anesthesia Plan Resuscitation Status: Full Code Anesthesia Technique: General Anesthesia Airway Planned: Natural Airway Monitors Used: Standard Monitors
[2020-11-24 09:53] VITALS: BMI 33.0
--- NOTE | 2020-11-24 10:25 | BOWEL_PTH ---
PATIENT: Keith Brambila LOC: [facility] U#:[id number] AGE/SX: 55/M ROOM: RE11/24/[address]: Donna Nuno MD : [id number] BED: DIS: 11/24/2020 SPEC #: [id number] RECD: 11/24/20 12:27 STATUS: [facility] RECori #: [id number] LAKESHA: 11/24/20 10:[address]: Donna Nuno DEPT: Surgical Specimen RECD BY: Janki Cheema ENTERED: 11/24/20 12:28 SP TYPE: Bowel OTHR DR: Sarah Dale Tissues: 1 - BIOPSY BOWEL 2 - BIOPSY BOWEL Procedures: GROSS AND MICRO LEVEL 4 Comments: [id number]
[2020-11-24 10:48] VITALS: BP 103/74; PULSE 58; RESP 16; TEMP 36.2; O2SAT 95
--- NOTE | 2020-11-24 11:07 | W.ANESPOSTOP ---
Postoperative Evaluation Date, Time and Location Date Performed: 11/24/20 Time Performed: 10:50 Patient Location: Day Surgery Unit Vital Signs Most Recent Imported Vital Signs: Most Recent Vital Signs Temp Pulse Resp BP Pulse Ox 36.2 C L 58 L 16 103/74 95 11/24/20 10:48 11/24/20 10:48 11/24/20 10:48 11/24/20 10:48 11/24/20 10:48 Pain Score Most Recent Pain Score: Most Recent Pain Score Pain Level 0 11/24/20 10:48 Assessment Mental Status: Awake (Alert & Oriented to Patient Baseline) Airway and Respiratory Function: Patent airway with normal (patient baseline) respiratory exam Cardiovascular Function: Hemodynamically Stable Hydration Status: Adequately Hydrated Nausea & Vomiting: No Nausea or Vomiting Pain: Pt. Denies Any Pain Peripheral Nerve Block: Patient did not receive a nerve block
== END 2020-11-24 11:54 | disposition home or self-care (01) ==
LOC: SUR 08:21
PROVIDERS: PCP Family Medicine; Visit Provider Surgery
PROC: 0DJD8ZZ Inspection of Lower Intestinal Tract, Via Natural or Artificial Opening Endoscopic (ICD-10-PCS; CPT 45378; principal; 2020-11-24 11:45)
DX: Z12.11 Encounter for screening for malignant neoplasm of colon (principal); D12.5 Benign neoplasm of sigmoid colon; Z86.010 Personal history of colon polyps; K64.1 Second degree hemorrhoids; K57.30 Diverticulosis of large intestine without perforation or abscess without bleeding
CPT/HCPCS: 45380; 46221; 88305; J2001; J2704

== ENCOUNTER 2021-06-04 08:48 | Outpatient (CLI) | payer BC, SELFPAY ==
--- NOTE | 2021-06-04 08:00 | DI.RAD_ITS ---
Exam(s) XR HIP LT AP LAT ONLY EXAM: XR HIP LT AP LAT ONLY CLINICAL HISTORY: f/u of left STEPHANIE. TECHNIQUE: 2D digital imaging was performed. COMPARISON: CR XR HIP LT COMPLETE AP PELVIS from 06/16/2020 FINDINGS: No fractures. Stable position alignment of the components of the left hip prosthesis. No fracture o r loosening evident. IMPRESSION: DATA REPOSITORY: RADIATION DOSE DELIVERED:
== END 2021-06-04 08:49 | disposition home or self-care (01) ==
LOC: DIORS 08:48
PROVIDERS: PCP Family Medicine; Referring Provider Family Medicine; Visit Provider Physician Assistant
DX: Z96.642 Presence of left artificial hip joint (principal); Z47.1 Aftercare following joint replacement surgery
CPT/HCPCS: 73502

== ENCOUNTER 2021-12-28 14:40 | Outpatient (REF) | payer BC, SELFPAY ==
[2021-12-29 17:59] LABS: PSA, Screening 1.1 ng/mL (<=3.5)
== END 2021-12-28 14:41 | disposition home or self-care (01) ==
LOC: LBN 14:40
PROVIDERS: PCP Family Medicine; Visit Provider Nurse Practitioner Gerontology
DX: N40.0 Benign prostatic hyperplasia without lower urinary tract symptoms (principal); Z12.5 Encounter for screening for malignant neoplasm of prostate
CPT/HCPCS: 84153

== ENCOUNTER 2022-08-06 10:43 | Outpatient (REF) | payer BC, SELFPAY ==
[2022-08-06 13:42] LABS: Abs Immature Grans 0.01 10^3/uL (0.0-0.06); Absolute Basophil Count 0.02 10^3/uL (0.0-0.2); Absolute Eosinophil Count 0.09 10^3/uL (0.0-0.7); Absolute Lymphocyte Count 0.95 10^3/uL (1.2-3.4); Absolute Monocyte Count 0.34 10^3/uL (0.1-0.8); Absolute Neutrophil Count 4.73 10^3/uL (1.2-6.7); Basophils % 0.3; Eosinophils % 1.5; HCT 42.9 % (40.0-50.0); Immature Grans % 0.2; Lymphocytes % 15.5; MCH 31.1 pg (27.0-33.0); MCHC 32.6 % (32.0-36.0); MCV 95 fL (80-95); Monocytes % 5.5; Platelet Count 137 10^3/uL (130-400); RDW 14.9 % (11.8-14.1); RDW-SD 53.1 fL; WBC 6.14 10^3/uL (4.4-10.8)
[2022-08-06 14:13] LABS: ALT 38 U/L (16-63); AST 16 U/L (15-37); Albumin 4.4 g/dL (3.4-5.0); Alkaline Phosphatase 109 U/L (46-116); BUN 15 mg/dL (7-18); Bilirubin, Total 0.6 mg/dL (0.2-1.0); CREATININE 1.1 mg/dL (0.70-1.30); Calcium 9.7 mg/dL (8.5-10.1); Calculated LDL 59 mg/dL (<100); Chloride 106 mmol/L (98-107); Cholesterol 132 mg/dL (<200); Estimated GFR 77.81 (mL/min/1.73m2); Glucose 101 mg/dL (74-106); HDL Cholesterol 40 mg/dL (40-60); Potassium 4.6 mmol/L (3.5-5.1); Sodium 142 mmol/L (136-145); Total Protein 7.3 g/dL (6.4-8.2); Triglyceride 168 mg/dL (<150)
[2022-08-06 14:15] LABS: Hemoglobin A1C 5.1 % (<5.7)
== END 2022-08-06 10:44 | disposition home or self-care (01) ==
LOC: NCHCN 10:43
PROVIDERS: PCP Family Medicine; Visit Provider Family Medicine
DX: Z00.00 Encounter for general adult medical examination without abnormal findings (principal); I10 Essential (primary) hypertension; E78.5 Hyperlipidemia, unspecified; N40.1 Benign prostatic hyperplasia with lower urinary tract symptoms; C91.40 Hairy cell leukemia not having achieved remission; Z13.1 Encounter for screening for diabetes mellitus
CPT/HCPCS: 80053; 80061; 83036; 85025